=== PATIENT | female | born 1955 | race Two or more races ===

== ENCOUNTER 2020-07-28 19:42 | Emergency (ER) | payer OTHER ==
[~2020-07-28] VITALS: Ht 152.4 cm; Wt 81.6 kg
--- NOTE | 2020-07-28 19:46 | NUR ---
Pt bibra c/o abd pain with n/v/d since am. pt aaox4 breathing evenly and unlabored. Pt has left arm dialysis access. pt states taht she goes to dialysis MWF, went today for only 1.5 hours. Pt skin is warm, dry, and intact. Pt attached to monitor and pox. Pt given blanket and call light within reach
--- NOTE | 2020-07-28 20:15 | NUR ---
xray at bedside
[2020-07-28] MEDS: ONDANSETRON HCL/PF 4 MG/2 ML VIAL IVP ONE (20:30)
[2020-07-28] MEDS: MORPHINE SULFATE INJ 2 MG/ML DISP.SYRIN IV ONE (20:30)
--- NOTE | 2020-07-28 20:30 | NUR ---
rt 20g in hand initiated. Blood obtained and sent to lab
[2020-07-28 20:32] LABS: BASOPHILS # (AUTO) 0.1 /CMM (0.0-0.2); BASOPHILS % (AUTO) 0.8 % (0.0-2.0); HEMATOCRIT 45 % (33-45); HEMOGLOBIN 14.7 g/dL (11.5-14.8); LYMPHOCYTES # (AUTO) 0.5 /CMM (0.8-4.8); LYMPHOCYTES % (AUTO) 7.1 % (20.0-44.0); MEAN CORPUSCULAR HGB CONC 33 g/dl (31.0-36.0); MEAN CORPUSCULAR VOLUME 93 fL (82-100); MONOCYTES # (AUTO) 0.1 /CMM (0.1-1.30); MONOCYTES % (AUTO) 2.1 % (2.0-12.0); NEUTROPHILS # (AUTO) 5.9 /CMM (1.8-8.9); PLATELET COUNT (AUTO) 215 /CMM (150-450); RED BLOOD CELL COUNT(AUTO) 4.77 MIL/uL (4.0-5.2); WHITE BLOOD COUNT (AUTO) 6.5 K/uL (4.3-11.0)
[2020-07-28 20:44] LABS: CALCIUM, SERUM 10.5 mg/dL (8.5-10.1); CARBON DIOXIDE 33 mmol/L (21-32); CHLORIDE 99 mmol/L (98-107); CREATININE 4.1 mg/dL (0.6-1.3); GLUCOSE 202 mg/dL (74-106); POTASSIUM 4.3 mmol/L (3.5-5.1); SODIUM SERUM 142 mmol/L (136-145); UREA NITROGEN, BLOOD 20 mg/dL (7-18)
[2020-07-28] MEDS ORDERED: ONDANSETRON HCL/PF 4 MG/2 ML VIAL ONE (20:44)
[2020-07-28] MEDS ORDERED: MORPHINE SULFATE INJ 4 MG/ML DISP.SYRIN ONE (20:44)
[2020-07-28 20:50] LABS: ALANINE AMINOTRANSFERASE 17 U/L (12-78); ALBUMIN 4.4 g/dL (3.4-5.0); ALKALINE PHOSPHATASE 115 U/L (46-116); ASPARTATE AMINOTRANSFERASE 17 U/L (15-37); BILIRUBIN,DIRECT 0.2 mg/dL (0.0-0.2); BILIRUBIN,TOTAL 0.8 mg/dL (0.2-1.0); TOTAL PROTEIN, SERUM 8.1 g/dL (6.4-8.2)
--- NOTE | 2020-07-28 21:19 | NUR ---
RETURN FROM CT
[2020-07-28] MEDS ORDERED: ONDA4TAB5 PO (22:35)
--- NOTE | 2020-07-29 00:15 | NUR ---
CONCETTA PACHECO) JUSTINA 30-45 MIN Addendum: 07/29/20 at 0016 by SATURNINO CONCETTA LOBATO [phone]
--- NOTE | 2020-07-29 00:57 | NUR ---
called house sup to ask for non destructive tester to remove connections for dialysis
--- NOTE | 2020-07-29 01:45 | NUR ---
DIALYSIS NURSE AT BEDSIDE TO REMOVE FISTULA NEEDLE.
--- NOTE | 2020-07-29 02:28 | NUR ---
ATTEMPTED TO CONTACT PT'S SON FOR DIETITIAN TEACHING. NO RESPONSE, LEFT MESSAGE
--- NOTE | 2020-07-29 03:29 | NUR ---
Patient discharged to home in stable condition. Written and verbal after care instructions given. Patient verbalizes understanding of instruction. IV removed. Catheter intact and site benign. Pressure and 4x4 applied to site. No bleeding noted.Pt ambulatory with a steady gait. Family arrived for case picker
[2020-07-29 03:30] VITALS: BP 119/66
== END 2020-07-29 03:30 | disposition home or self-care (01) ==
LOC: ER 19:46
DX: R11.2 Nausea with vomiting, unspecified (principal); R10.13 Epigastric pain; I10 Essential (primary) hypertension; E11.9 Type 2 diabetes mellitus without complications
CPT/HCPCS: 71045; 74176; 80048; 80076; 83605; 84145; 84484; 85025; 85730; 93005; 96374; 96375; 99285; J2270; J2405